=== PATIENT | male | born 1975 | race Caucasian/White ===

== ENCOUNTER 2017-01-18 11:02 | Emergency (ER) | payer OTHER ==
[2017-01-18 11:14] VITALS: BMI 32.1
--- NOTE | 2017-01-18 11:23 | PDOC ---
History of Present Illness - General Chief Complaint: Diarrhea Stated Complaint: NAUSEA Time Seen by Provider: 01/18/17 11:07 Past History - Past Medical History Allergies/Adverse Reactions: Allergies Allergy/AdvReac Type Severity Reaction Status Date / Time No Known Allergies Allergy Verified 01/18/17 11:14 Psychiatric Problems: Yes (DEPRESSION) - Surgical History Appendectomy: Yes - Psycho/Social/Smoking Cessation Hx Suicidal Ideation: No Smoking History: Never smoked Have you smoked in the past 12 months: No *Physical Exam - Vital Signs Last Vital Signs Temp Pulse Resp BP Pulse Ox 97.9 F 81 18 110/82 99 01/18/17 11:12 01/18/17 11:12 01/18/17 11:12 01/18/17 11:12 01/18/17 11:12
--- NOTE | 2017-01-18 11:39 | PDOC ---
History of Present Illness - General Chief Complaint: Diarrhea Stated Complaint: NAUSEA Time Seen by Provider: 01/18/17 11:07 History Source: Patient Exam Limitations: No Limitations - History of Present Illness Travel History: No Initial Comments: 01/18/17 11:37 41-year-old male presents to the emergency with complaints of sudden onset of diarrhea 2 days ago which began approximately 8 hours after having [place] food. Patient states has had mild abdominal cramping to the lower abdominal region but denies fever, chills chest pain or shortness of breath. Patient also complaining of nausea without vomiting and states every time he eats something he has an episode of watery stool. Patient denies GI disorders, recent travel, recent weight loss but does state recently completed antibiotics for strep throat 1 week ago. Timing/Duration: reports: intermittent Quality: reports: mild, cramping Abdominal Pain Onset Location: reports: suprapubic (mid) Pain Radiation: reports: no radiation Activities at Onset: reports: none Aggravating Factors: improves with: Eating Alleviating Factors: improves with: Defecation Past History - Past Medical History Allergies/Adverse Reactions: Allergies Allergy/AdvReac Type Severity Reaction Status Date / Time No Known Allergies Allergy Verified 01/18/17 11:14 Psychiatric Problems: Yes (DEPRESSION) - Surgical History Appendectomy: Yes - Psycho/Social/Smoking Cessation Hx Suicidal Ideation: No Smoking History: Never smoked Have you smoked in the past 12 months: No Patient Lives Alone: No Lives with/in: spouse/SO Review of Systems - Review of Systems Able to Perform ROS?: Yes Constitutional: No: Symptoms Reported HEENTM: No: Symptoms Reported Respiratory: No: Symptoms reported Cardiac (ROS): No: Symptoms Reported ABD/GI: Yes: Diarrhea, Poor Appetite, Abdominal cramping : No: Symptoms Reported Musculoskeletal: No: Symptoms Reported Integumentary: No: Symptoms Reported Neurological: No: Symptoms reported *Physical Exam - Vital Signs Last Vital Signs Temp Pulse Resp BP Pulse Ox 97.9 F 81 18 110/82 99 01/18/17 11:12 01/18/17 11:12 01/18/17 11:12 01/18/17 11:12 01/18/17 11:12 - Physical Exam General Appearance: Yes: Nourished, Appropriately Dressed. No: Apparent Distress HEENT: positive: Pharynx Normal (dryI). negative: Pale Conjunctivae Neck: positive: Supple Respiratory/Chest: positive: Lungs Clear, Normal Breath Sounds. negative: Respiratory Distress, Accessory Muscle Use Cardiovascular: positive: Regular Rhythm, Regular Rate. negative: Murmur Gastrointestinal/Abdominal: positive: Soft, Tenderness (lower periumbilical) Musculoskeletal: negative: CVA Tenderness Extremity: positive: Normal Capillary Refill. negative: Pedal Edema Integumentary: positive: Normal Color, Warm, Moist Neurologic: positive: Normal Mood/Affect, Motor Strength 5/5 (ambulatory) ED Treatment Course - LABORATORY CBC & Chemistry Diagram: 01/18/17 11:45 01/18/17 11:45 Medical Decision Making - Medical Decision Making 01/18/17 11:41 Patient with diarrhea for the past 2 days associated with poor by mouth solid intake and lower periorbital cramping. Patient on exam did have mild cramping. Patient has history of appendectomy but denies GI disorders. Patient did eat [place] food hours prior to onset. Patient consented for Escherichia coli versus salmonella. Patient ordered for stool cultures, O&P, and C. difficile since he recently completed antibiotics one week ago. Patient also ordered for labs, IV fluids and Zofran. 01/18/17 15:29 Laboratory Tests 01/18/17 01/18/17 01/18/17 11:45 11:45 14:13 WBC 14.9 H Hgb 17.1 H Hct 49.8 H Neutrophils % 82.4 Sodium 140 Potassium 3.4 L Chloride 104 Carbon Dioxide 22 Anion Gap 14 BUN 14 Random Glucose 122 H Calcium 8.4 L Total Bilirubin 1.2 H Urine Protein 1+ H Urine Ketones Trace H Urine Blood 1+ H Urine Nitrite Negative Ur Leukocyte Esterase Negative Patient ordered for second bag of IV fluids and 20 mEq of potassium. Patient will be discharged home with Lomotil and Zofran. Stool cultures obtained. *DC/Admit/Observation/Transfer Diagnosis at time of Disposition: Diarrhea Qualifiers: Diarrhea type: unspecified type Qualified Code(s): R19.7 - Diarrhea, unspecified - Discharge Dispostion Disposition: HOME Condition at time of disposition: Improved - Patient Instructions Printed Discharge Instructions: DI for Diarrhea and Traveler's Diarrhea -- Adult Additional Instructions: Please take Lomotil as needed for diarrhea and take Zofran as needed for nausea/ vomiting. Please eat small frequent bland food for the next 72 hours and advance as tolerated. Please also eat starchy food as this may bind your stool
[2017-01-18] MEDS ORDERED: SODIUM CHLORIDE 1,000 ML IV STA ×2 (11:42→15:29)
[2017-01-18] MEDS ORDERED: ONDANSETRON 4 MG/2 ML VIAL IVPUSH ONE (11:42)
[2017-01-18] MEDS ORDERED: ONDANSETRON 4 MG/2 ML VIAL ONE (11:48)
[2017-01-18 11:52] LABS: BASOPHIL 0.3 % (0-2.0); EOSINOPHIL 0.4 % (0-4.5); MCH 30.5 pg (25.7-33.7); MCHC 34.4 g/dl (32.0-35.9); MEAN CELL VOLUME 88.5 fl (80-96); MEAN PLT VOLUME 7.7 fl (7.5-11.1); NEUTROPHILS 82.4 % (42.8-82.8); PLATELET COUNT 238 K/MM3 (134-434); WHITE BLOOD COUNT 14.9 K/mm3 (4.0-10.0)
[2017-01-18 12:16] LABS: ALBUMIN 3.7 g/dl (3.4-5.0); ALK PHOS 61 U/L (45-117); ANION GAP 14 (8-16); BILIRUBIN,TOTAL 1.2 mg/dL (0.2-1.0); CALCIUM 8.4 mg/dL (8.5-10.1); CO2 22 mmol/L (21-32); COCKROFT - GAULT 143.44; GLUCOSE,RANDOM 122 mg/dL (74-106); SGOT/AST 23 U/L (15-37); SGPT/ALT 43 U/L (12-78); TOT PROT 7.1 g/dl (6.4-8.2)
[2017-01-18 15:06] LABS: URINE APPEARANCE SLCLOUDY; URINE BILIRUBIN NEGATIVE (NEGATIVE); URINE COLOR AMBER; URINE GLUCOSE (UA) NEGATIVE (NEGATIVE); URINE KETONE TRACE (NEGATIVE); URINE LEUK ESTERASE NEGATIVE (NEGATIVE); URINE NITRITE NEGATIVE (NEGATIVE); URINE UROBILINOGEN NEGATIVE E.U./dl (0.2-1.0)
[2017-01-18 15:20] LABS: URINE BLOOD 1+ (NEGATIVE); URINE PROTEIN 1+ (NEGATIVE)
[2017-01-18 15:22] LABS: URINE MUCUS MANY; URINE RBC 3 /hpf (0-3); URINE WBC 10 /hpf (3-5)
[2017-01-18] MEDS ORDERED: POTASSIUM CHLORIDE TABS 20 MEQ TABLET.ER (FP) PO ONE (15:29)
[2017-01-18] MEDS ORDERED: POTASSIUM CHLORIDE TABS 10 MEQ TABLET.ER (FP) ONE (16:06)
[2017-01-18 17:05] VITALS: BP 111/70; PULSE 70; TEMP 98
--- NOTE | 2017-01-19 09:12 | EKG ---
Test Reason : Blood Pressure : / mmHG Vent. Rate : 074 BPM Atrial Rate : 074 BPM P-R Int : 166 ms QRS Dur : 104 ms QT Int : 382 ms P-R-T Axes : 054 036 032 degrees QTc Int : 424 ms NORMAL SINUS RHYTHM INCOMPLETE RBBB NO PREVIOUS ECGS AVAILABLE Confirmed by DONALDO YEN MD ([id number]) on 01/19/2017 9:12:06 AM Referred By: Confirmed By:DONALDO YEN MD
== END 2017-01-18 17:06 | disposition home or self-care (01) ==
LOC: JER 11:02
PROC: 3E0337Z Introduction of Electrolytic and Water Balance Substance into Peripheral Vein, Percutaneous Approach (ICD-10-PCS; principal; 2017-01-18)
PROC: 3E033GC Introduction of Other Therapeutic Substance into Peripheral Vein, Percutaneous Approach (ICD-10-PCS; 2017-01-18)
DX: R11.2 Nausea with vomiting, unspecified (principal)
CPT/HCPCS: 36415; 80053; 81003; 81015; 85025; 87045; 87046; 87186; 87324; 87449; 93005; 93010; 99282-25